=== PATIENT | female | born 1995 | race Caucasian/White ===

== ENCOUNTER → 2022-03-27 | Outpatient (CLI) | payer MEDICAID ==
--- NOTE | 2022-03-27 12:54 | Diagnostic Imaging Report ---
INDICATION: Late entry into care. TECHNIQUE: Multiple real-time grayscale images were obtained over the gravid uterus. COMPARISON: None. FINDINGS: There is a single live intrauterine gestation. The cervix is not well seen due to shadowing from the head. The placenta is posterior and to the left without evidence of previa. heart rate measures 130 BPM. The amniotic fluid index measures 13.3 cm. Presentation is cephalic. The biophysical profile score is 8/8. Biometrical measurements are as follows: Biparietal 9.20 cm, age 37 weeks 3 days. Head circumference 33.41 cm, age 38 weeks 2 days. Abdominal circumference 31.77 cm, age 35 weeks 5 days. Femur length 7.65 cm, age 39 weeks 1 days. Sonographic estimate age: 37 weeks 5 days. Sonographic estimated date of delivery: 04/12/2022. Estimated Weight: 3103 gm (+/- 453 gm). LMP percentile: 28%. heart rate: 130 beats per minute. number: 1 of 1. IMPRESSION: 1. Single live intrauterine gestation measuring at 37 weeks and 5 days. heart rate and amniotic fluid are normal. 2. Biophysical profile score of 8/8. Dictated by: Dictated on workstation # [id number]
== END ==
LOC: RAD 11:30
PROVIDERS: ATTEND Nurse Practitioner Women's Health
DX: O09.33 Supervision of pregnancy with insufficient antenatal care, third trimester (principal); Z3A.37 37 weeks gestation of pregnancy
CPT/HCPCS: 76805; 76819

== ENCOUNTER 2022-04-01 05:34 | Outpatient (CLI) | payer MEDICAID ==
[~2022-04-01] VITALS: Ht 162.5 cm; Wt 111.3 kg
[2022-04-01] MEDS ORDERED: PNV1TABL9 PO ×2 (12:28)
[2022-04-02] MEDS ORDERED: DOCU100C37 PO ×2 (07:34)
[2022-04-02] MEDS ORDERED: ACHD5005 PO ×2 (07:34)
[2022-04-02] MEDS ORDERED: IBUP-844 PO ×2 (07:34)
== END 2022-04-01 14:16 ==
LOC: PREOP 05:34
PROVIDERS: ATTEND Obstetrics & Gynecology
DX: Z01.818 Encounter for other preprocedural examination (principal)

== ENCOUNTER 2022-04-02 05:35 | Inpatient (IN) | payer MEDICAID ==
[2022-04-02] VITALS (13 sets, daily range): BP systolic 88–129; BP diastolic 45–82
[~2022-04-02] VITALS: Ht 167.7 cm; Wt 111.9 kg
[~2022-04-02 05:35] MED LIST: PNV1TABL9 PO
[2022-04-02] MEDS ORDERED: METOCLOPRAMIDE INJ 10 MG/2 ML (REGLAN) IV ONE (05:45)
[2022-04-02] MEDS ORDERED: CITRIC ACID/SOB CIT (BICITRA) 30 ML UDC PO ONE (05:45)
[2022-04-02] MEDS ORDERED: CATHETER FLUSH 10 ML SYR IV PRN (05:45)
[2022-04-02] MEDS ORDERED: ceFAZolin INJECTION 2,000 MG in NS (IVPB) 50 ML IV ONE (05:45)
[2022-04-02] MEDS ORDERED: LACTATED RINGERS 1,000 ML IV PRN (05:45)
[2022-04-02] MEDS ORDERED: metroNIDAZOLE 500MG/100ML IVPB 100 ML IV ONE (05:45)
[2022-04-02] MEDS ORDERED: FAMOTIDINE 20MG/2ML IV (PEPCID) IV ONE (06:15)
[2022-04-02 07:12] LABS: BILIRUBIN,URINE NEGATIVE (NEGATIVE); CLARITY,URINE CLEAR; COLOR,URINE YELLOW; GLUCOSE, URINE (UA) NEGATIVE (NEGATIVE); KETONES,URINE NEGATIVE (NEGATIVE); LEUKOCYTE ESTERASE ,URINE TRACE (NEGATIVE); NITRITE,URINE NEGATIVE (NEGATIVE); PROTEIN,URINE NEGATIVE (NEGATIVE)
[2022-04-02] MEDS ORDERED: fentaNYL INJ 100 MCG/2 ML AMP ONE (07:12)
[2022-04-02] MEDS ORDERED: FLU QUADRIvalent (6 months+) 60 mcg/0.5 ml 2022-23 (Fluzone) IM ONE (07:15)
[2022-04-02] MEDS ORDERED: ONDANSETRON 4 MG/2 ML (SDV) Z0FRAN ONE (07:25)
[2022-04-02] MEDS ORDERED: KETOROLAC 30 MG/ML VIAL ONE (07:25)
[2022-04-02] MEDS ORDERED: BUPIVACAINE 0.25% 30 ML (SENSORCAINE) VIAL ONE (07:25)
--- NOTE | 2022-04-02 07:28 | History & Physical-OB ---
OB - Chief Complaint & HPI Date/Time Date of Admission: Date of Admission: Apr 02, 2022 at 05:35 Date seen by a Provider: Apr 02, 2022 Time Seen by a Provider: 07:25 Chief Complaint/History OB-Reason for Admission/Chief: Section Hx : 3 Hx Para: 3 Expected Date of Delivery: Apr 02, 2022 Gestational Age in Weeks: 40 Gestational Age in Days: 0 Indication for : desires repeat Admission Nurse Assessment Rev: Yes History of Labs See PNL from [facility] Allergies and Home Medications Allergies Coded Allergies: No Known Drug Allergies (Unverified , 04/01/22) Patient Home Medication List Home Medication List Reviewed: Yes Pnv Cmb#21/Iron/Folic Acid ( Complete Caplet) 14 Mg Iron-400 Mcg Tablet, 1 EACH PO DAILY, (Reported) Entered as Reported by: MARISABEL JARQUIN on 04/01/22 1228 OB - History Hx of Present Care: Yes Ultrasounds: Other (late 2nd trimester US. Indeterminate conflicting dates. LMP late Feb/Early march ALEXIS, US 04/02-04/19) Abnormal Ultrasound Findings: Suspected IUGR Obstetrical Complications: None Medical Complications: None Patient Past Medical History n/a Immunizations Influenza Vaccine Up-to-Date: No; Not Current OB - Admission Exam Physical Exam Vitals: Vital Signs 04/02/22 05:54 Temp 36.6 Pulse 88 Resp 18 B/P (MAP) 129/82 (98) Pulse Ox 98 O2 Delivery Room Air HEENT: NCAT Heart: Rhythm Normal Lungs: Clear Abdomen: Gravid Extremities: Normal Reflexes: Normal Heart Rate: 130's Accelerations: Accelerations Present Decelerations: No Decelerations Short Term Variability: Present Literary Agent Variability: Average (6-25) Contractions on Admission: >10 Minutes Apart Intensity: Mild Labs Laboratory Tests Test 04/02/22 07:00 Range/Units OB - Assessment/Plan/Diagnosis Assessment Assessment: section Admission Dx 26 yo @ 40.0 weeks Previous x 2 Probable SGA vs. IUGR due to growth noted on US Tobacco user in . Admission Status: Inpatient Order (span 2 midnights) Reason for Inpatient Admission: Repeat Plan Plan: Section DUANE DENIS DO Apr 02, 2022 07:28
[2022-04-02] MEDS ORDERED: MEASLES,MUMPS,RUBELLA 1 EA INJ SC SCH (07:30)
[2022-04-02] MEDS ORDERED: ONDANSETRON 4 MG/2 ML (SDV) Z0FRAN IVP PRN (07:30)
[2022-04-02] MEDS ORDERED: NALOXONE 0.4 MG/ML 1 ML (NARCAN) VIAL IV PRN (07:30)
[2022-04-02] MEDS ORDERED: TETANUS,DIPTH,PERTUSS P/F (BOOSTRIX) 0.5 ML VIAL IM SCH (07:30)
--- NOTE | 2022-04-02 07:31 | Discharge Inst-Women's Service ---
Discharge Inst-Women's Serv Depart Medication/Instructions New, Converted or Re-Newed RX: Transmitted to Pharmacy Final Diagnosis POD 2 RLTCS Problems Reviewed?: Yes Consults/Follow Up Additional Follow Up: Yes Orders/Referrals Dr. Girard/Abbi in 7-10 days and [facility] in 6 weeks Activity Activity: Activity as Tolerated Driving Instructions: No Driving for 1 Week NO SMOKING: NO SMOKING Nothing Inside Vagina: No Douching, No [place], No Tampons Diet Discharge Diet: No Restrictions Symptoms to Report to : Bleeding Excessive, Pain Increased, Fever Over 101 Degrees F, Vaginal Bleeding Increase, Questions/Concerns For Any Problems or Questions: Contact Your Physician Skin/Wound Care Infection Signs and Symptoms: Increased Redness, Foul Odor of Wound, Increased Drainage, Skin Itchy or Has a Rash, Increased Swelling, Temperature Above 101 F Operative Area Clean and Dry: Keep Incision Clean/Dry Stitches/[place]/Dermabond: Dermabond, Care of Stitches Bathing Instructions: DUANE Cornelius DO Apr 02, 2022 07:31
[2022-04-02] MEDS ORDERED: IBUP-844 PO ×2 (07:34)
[2022-04-02] MEDS ORDERED: DOCU100C37 PO ×2 (07:34)
[2022-04-02] MEDS ORDERED: ACHD5005 PO ×2 (07:34)
[2022-04-02 07:54] LABS: AMPHETAMINE SCREEN, URINE NEGATIVE (NEGATIVE); BACTERIA,URINE TRACE /HPF; BARBITURATE SCREEN URINE NEGATIVE (NEGATIVE); BENZODIAZEPINES SCREEN URINE NEGATIVE (NEGATIVE); CANNABINOID SCREEN, URINE NEGATIVE (NEGATIVE); COCAINE SCREEN URINE NEGATIVE (NEGATIVE); METHADONE STAT NEGATIVE (NEGATIVE); OPIATE SCREEN URINE NEGATIVE (NEGATIVE); OXYCODONE STAT NEGATIVE (NEGATIVE); PROPOXYPHENE STAT NEGATIVE (NEGATIVE); TRICYCLIC ANTIDEPRESSANTS SCRE NEGATIVE (NEGATIVE)
[2022-04-02 08:37] LABS: BASOPHILS % (AUTO) 0 % (0-10); EOSINOPHILS # (AUTO) 0.2 10^3/uL (0.0-0.3); EOSINOPHILS % (AUTO) 2 % (0-10); HEMATOCRIT 29 % (35-52); HEMOGLOBIN 8.9 g/dL (11.5-16.0); LYMPHOCYTES # (AUTO) 1.7 10^3/uL (1.0-4.0); LYMPHOCYTES % (AUTO) 17 % (12-44); MEAN CORPUSCULAR HEMOGLOBIN 23 pg (25-34); MEAN CORPUSCULAR HGB CONC 31 g/dL (32-36); MEAN CORPUSCULAR VOLUME 76 fL (80-99); MEAN PLATELET VOLUME 9.3 fL (9.0-12.2); MONOCYTES # (AUTO) 0.5 10^3/uL (0.0-1.0); MONOCYTES % (AUTO) 5 % (0-12); NEUTROPHILS # (AUTO) 7.5 10^3/uL (1.8-7.8); NEUTROPHILS % (AUTO) 76 % (42-75); PLATELET COUNT 219 10^3/uL (130-400); WHITE BLOOD COUNT 9.9 10^3/uL (4.3-11.0)
[2022-04-02] MEDS: DOCUSATE SODIUM 100 MG (COLACE) CAP PO SCH ×2 (09:00→20:49)
[2022-04-02] MEDS: LACTATED RINGERS 1,000 ML IV PRN ×2 (11:31→12:22)
[2022-04-02] MEDS: OXYTOCIN PRE-MIX DRIP 500 ML IV SCH ×2 (14:01→18:02)
[2022-04-02] MEDS: CATHETER FLUSH 10 ML SYR IV SCH (14:21)
[2022-04-02] MEDS ORDERED: OXYTOCIN PRE-MIX DRIP 500 ML IV ONE (18:00)
[2022-04-02] MEDS: HYDROcodone/APAP 5 MG/325 MG (LORTAB) TAB PO PRN (18:34)
[2022-04-02] MEDS: KETOROLAC 30 MG/ML VIAL IV SCH (20:50)
--- NOTE | 2022-04-02 22:59 | OPERATIVE REPORT ---
DATE OF SERVICE: 04/02/2022 PREOPERATIVE DIAGNOSES: 1. A 26-year-old G3, P2 at 40 weeks gestation. 2. Previous section x2. POSTOPERATIVE DIAGNOSES: 1. A 26-year-old G3, P2 at 40 weeks gestation. 2. Previous section x2. PROCEDURE: Repeat low transverse section. SURGEON: Mike Denis DO WEIGHT LOSS CENTRE MANAGER: Abbi Mcgee DNP, was necessary for manipulation and retraction throughout the procedure. ANESTHESIA: Spinal. ESTIMATED BLOOD LOSS: 400 mL URINE OUTPUT: 50 mL clear at the end of the procedure. FLUIDS: 1800 mL lactated Ringer's solution. FINDINGS: Live female infant weighing 7 pounds 4 ounces, Apgars of 8 and 9. Grossly normal appearing uterus, bilateral fallopian tubes, and ovaries. SPECIMENS SENT: Placenta. INDICATIONS FOR PROCEDURE: This 26-year-old female patient who had sought consultation in my office for repeat . She had 2 prior cesareans in the past. She was scheduled for the best estimated delivery date given that her due dates had ranged anywhere from early March to early April by a 20-week ultrasound. This made her approximately 40 weeks today. Risks of the procedure were discussed with the patient in detail. After all of her questions were answered and consent was obtained, the patient was taken to the operating room. DESCRIPTION OF PROCEDURE: Once in the operating room, spinal analgesia was found to be adequate, was placed in supine position with a leftward tilt, prepped and draped in a sterile fashion. A timeout was performed. Anesthesia was tested. I then made a Pfannenstiel skin incision through the previous existing scar using a knife and carried down to the fascia using Bovie cautery. The fascial incision extended laterally using Bovie cautery. Superior aspect of fascial incision was then grasped with Roc clamps, tented upward and dissected off the rectus muscles. The inferior aspect of the fascial incision was then grasped with Roc clamps, tented up and dissected off the rectus muscles. The rectus muscles were dissected in the midline, which exposed the peritoneum, which were entered bluntly and extended using blunt traction. José Luis ring retractor was placed within the peritoneal incision was done first. Excellent lateral sidewall retraction identified. The lower uterine segment was found to be thinned out and make a low transverse incision to the vesicouterine peritoneum and bluntly dissected off the lower uterine segment, creating a bladder flap. We then proceeded with my myotomy until membranes were visualized, at which point I extended the uterine incision laterally and superiorly using bandage scissors. The infant was found in the vertex presentation. With gentle fundal pressure, the infant's head was elevated up to the incision where it was delivered through the incision. Nuchal cord was reduced x3. Anterior and posterior shoulders were delivered and the was brought to the operative field. Cords were clamped and cut. was handed off to waiting nurses in attendance. Cord blood was collected. Three-vessel cord with intact placenta delivered spontaneously thereafter. IV Pitocin is initiated to facilitate uterine contraction. Uterine fundus confirmed by bimanual massage. The uterus was then exteriorized and cleared of all endometrial clots and debris. I then proceeded with closing the uterine incision using 0 Vicryl suture in a running locked fashion. Second layer of imbricating 0 Monocryl was placed. Excellent hemostasis was noted. After doing this, I then placed the uterus back in the pelvis and copiously irrigated the pelvis with normal saline. Once again, there was noted to be no remaining dissection planes. I placed Interceed antiadhesive over a low transverse incision. I removed the José Luis ring retractor and proceeded with closing the peritoneum and rectus muscles in one layer using 3-0 Vicryl suture in a running fashion. The fascia was reapproximated using 0 Vicryl suture in a running fashion. The skin was then reapproximated using 4-0 Monocryl in a running subcuticular. Dermabond was applied to incision and sterile dressing with adhesive white tape. The patient tolerated the procedure well and was taken to recovery are in stable condition. Lap and sponge counts were correct at the end of the procedure. Instrument counts were correct as well. Two grams of Ancef were given preoperatively for infection prophylaxis. Job ID: [id number] DocumentID: [id number] Dictated Date: 04/02/2022 12:47:37 Oil Paint Shader Date: 04/02/2022 22:56:00 Dictated By: MIKE DENIS DO
[2022-04-03 00:10] VITALS: BP 119/68
[2022-04-03 03:50] VITALS: BP 122/75
[2022-04-03] MEDS: KETOROLAC 30 MG/ML VIAL IV SCH (03:50)
[2022-04-03] MEDS: CATHETER FLUSH 10 ML SYR IV SCH (03:50)
[2022-04-03] MEDS: HYDROcodone/APAP 5 MG/325 MG (LORTAB) TAB PO PRN (03:52)
[2022-04-03 06:01] LABS: BASOPHILS % (AUTO) 0 % (0-10); EOSINOPHILS # (AUTO) 0.2 10^3/uL (0.0-0.3); EOSINOPHILS % (AUTO) 2 % (0-10); HEMATOCRIT 28 % (35-52); HEMOGLOBIN 8.9 g/dL (11.5-16.0); LYMPHOCYTES # (AUTO) 1.6 10^3/uL (1.0-4.0); LYMPHOCYTES % (AUTO) 17 % (12-44); MEAN CORPUSCULAR HEMOGLOBIN 24 pg (25-34); MEAN CORPUSCULAR HGB CONC 32 g/dL (32-36); MEAN CORPUSCULAR VOLUME 75 fL (80-99); MEAN PLATELET VOLUME 9.3 fL (9.0-12.2); MONOCYTES # (AUTO) 0.7 10^3/uL (0.0-1.0); MONOCYTES % (AUTO) 7 % (0-12); NEUTROPHILS # (AUTO) 7.1 10^3/uL (1.8-7.8); NEUTROPHILS % (AUTO) 74 % (42-75); PLATELET COUNT 240 10^3/uL (130-400); WHITE BLOOD COUNT 9.7 10^3/uL (4.3-11.0)
[2022-04-03] MEDS ORDERED: IBUPROFEN 600 MG (MOTRIN) TAB PO SCH (07:30)
[2022-04-03 08:38] VITALS: BP 100/61
[2022-04-03] MEDS: DOCUSATE SODIUM 100 MG (COLACE) CAP PO SCH (08:42)
--- NOTE | 2022-04-03 09:02 | Anesthesia-Regional Post-Op ---
Regional Patient Condition Mental Status: Alert, Oriented x3 Circulation: Same as Pre-Op Headache: Absent Sensation: Full Recovery Motor Block: Absent Post Op Complications Complications None Follow Up Care/Instructions Patient Instructions None needed. Anesthesia/Patient Condition Patient is doing well, no complaints, stable vital signs, no apparent adverse anesthesia problems. No complications reported per nursing. VIKY CHAVEZ CRNA Apr 03, 2022 09:02
--- NOTE | 2022-04-03 10:24 | Postpartum Progress Note ---
Note Note Day # 1 Subjective: Patient is without complaints. Ambulating, voiding. Tolerating a regular diet without nausea or vomiting. Normal lochia. Pain is well controlled with oral pain medications. Physical Exam: General - Alert and oriented, no apparent distress Abdomen - Soft, appropriately tender to palpation, non-distended, fundus firm at umbilicus; incision c/d/i Extremities - no edema, negative Carlos's bilaterally Assessment: Post- day # 1, status post RLTCS Recovering well, hemodynamically stable Acute blood loss anemia Plan: Routine care. Encourage breast feeding. Encourage ambulation. Ferrous sulfate supplementation. Plan for discharge today after noon d/t transfer of infant for surgery Vitals - Labs Vital Signs - I&O Vital Signs Date Time Temp Pulse Resp B/P (MAP) Pulse Ox O2 Delivery O2 Flow Rate FiO2 04/03/22 03:50 36.4 80 18 122/75 (91) 97 Room Air 04/03/22 00:10 36.6 88 18 119/68 (85) 97 Room Air 04/02/22 20:50 36.6 89 18 124/69 (87) 97 Room Air 04/02/22 18:35 36.6 78 18 120/72 (88) 99 Room Air 04/02/22 15:59 Room Air 04/02/22 14:30 36.6 72 16 110/64 (79) 98 Room Air 04/02/22 14:00 36.5 68 18 118/59 (78) 99 Room Air 04/02/22 13:50 Room Air 04/02/22 13:45 36.3 16 109/69 (82) 98 Room Air 04/02/22 13:40 20 88/48 (61) 99 Room Air 04/02/22 13:30 17 92/57 (69) 98 Room Air 04/02/22 13:30 Room Air 04/02/22 13:20 16 119/71 (87) 98 Room Air 04/02/22 13:15 Room Air 04/02/22 13:10 16 108/52 (70) 99 Room Air 04/02/22 13:00 Room Air 04/02/22 13:00 20 94/51 (65) 99 Room Air 04/02/22 12:52 Room Air 04/02/22 12:52 36.8 16 88/45 (59) 99 Room Air I & O 04/03/22 07:00 Intake Total 3000 ml Output Total 1020 ml Balance 1980 ml Labs Laboratory Tests 04/03/22 05:40: White Blood Count 9.7, Red Blood Count 3.74L, Hemoglobin 8.9L, Hematocrit 28L, Mean Corpuscular Volume 75L, Mean Corpuscular Hemoglobin 24L, Mean Corpuscular Hemoglobin Concent 32, Red Cell Distribution Width 15.5H, Platelet Count 240, Mean Platelet Volume 9.3, Immature Granulocyte % (Auto) 1, Neutrophils (%) (Auto) 74, Lymphocytes (%) (Auto) 17, Monocytes (%) (Auto) 7, Eosinophils (%) (Auto) 2, Basophils (%) (Auto) 0, Neutrophils # (Auto) 7.1, Lymphocytes # (Auto) 1.6, Monocytes # (Auto) 0.7, Eosinophils # (Auto) 0.2, Basophils # (Auto) 0.0, Immature Granulocyte # (Auto) 0.1 Microbiology 04/02/22 MRSA Screen - Final, Complete MRSA not isolated DERIK WARD APRN Apr 03, 2022 10:24
== END 2022-04-03 12:10 | disposition home or self-care (01) | DRG 787 ==
LOC: LDRP 05:35
PROVIDERS: ADMIT Obstetrics & Gynecology; ATTEND Obstetrics & Gynecology
PROC: 10D00Z1 Extraction of Products of Conception, Low, Open Approach (ICD-10-PCS; principal; 2022-04-02 11:56)
DX: O48.0 Post-term pregnancy (principal); D62 Acute posthemorrhagic anemia; O34.211 Maternal care for low transverse scar from previous cesarean delivery; O99.334 Smoking (tobacco) complicating childbirth; Z37.0 Single live birth; O69.81X0 Labor and delivery complicated by cord around neck, without compression, not applicable or unspecified; O90.81 Anemia of the puerperium; Z3A.40 40 weeks gestation of pregnancy; F17.210 Nicotine dependence, cigarettes, uncomplicated
CPT/HCPCS: 36410; 36415; 76937; 80306; 81000; 85025; 86850; 86900; 86901; 87081; 94664

== ENCOUNTER 2022-06-03 13:59 | Emergency (ER) | payer MEDICAID ==
[~2022-06-03] VITALS: Ht 163 cm; Wt 97.0 kg
[~2022-06-03 13:59] MED LIST changes: +ACHD5005 PO; +DOCU100C37 PO; +IBUP-844 PO
[2022-06-03 14:04] VITALS: BP 137/79
--- NOTE | 2022-06-03 14:21 | ED Upper Extremity ---
General Chief Complaint: Upper Extremity Stated Complaint: RT HAND SWOLLEN Nursing Triage Note: PT AMB TO ED BY POV WITH C/O R HAND SWELLING SINCE YESTERDAY. PT DENIES INJURY. RED RASH NOTED TO BILAT HANDS, PT REPORTS THAT IS NORMAL FOR HER. PT HAS NOT TRIED TAKING ANY PAIN MEDS OR ICING THE AREA. History of Present Illness Date Seen by Provider: Jun 03, 2022 Time Seen by Provider: 14:09 Initial Comments 26-year-old female presents with swelling to the back of her right hand. She reports that she noticed that yesterday. Thinks that maybe a skin little bit bigger. She does have a rash on her bilateral hands but reports that that is normal for her. She does not recall any injury. She has not tried thing for it. She has full range of motion. Mild erythema and warmth. Allergies and Home Medications Allergies Coded Allergies: morphine (Verified Adverse Reaction, Mild, Itching, 04/02/22) Patient Home Medication List Home Medication List Reviewed: Yes Docusate Sodium (Docusate Sodium) 100 Mg Capsule, 100 MG PO BID Prescribed by: DUANE DENIS on 04/02/22 0734 Hydrocodone Bit/Acetaminophen (HYDROcodone/APAP 5 MG/325 MG TAB) 1 Tab Tab, 1-2 EA PO Q6HR PRN for PAIN-MODERATE (5-7) Prescribed by: DUANE DENIS on 04/02/22 0735 Ibuprofen (Ibu) 600 Mg Tablet, 600 MG PO Q6H Prescribed by: DUANE DENIS on 04/02/22 0734 Pnv Cmb#21/Iron/Folic Acid ( Complete Caplet) 14 Mg Iron-400 Mcg Tablet, 1 EACH PO DAILY, (Reported) Entered as Reported by: MARISABEL JARQUIN on 04/01/22 1228 Review of Systems Constitutional: No chills, No fever EENTM: no symptoms reported Respiratory: no symptoms reported Cardiovascular: no symptoms reported Gastrointestinal: no symptoms reported Genitourinary: no symptoms reported Musculoskeletal: see HPI Skin: see HPI Past Naidqhe-Vlxtru-Sialnr Hx Patient Social History Tobacco Use?: Yes Tobacco type used: Cigarettes Smoking Status: Current Everyday Smoker Use of E-Cig and/or Vaping dev: No Substance use?: No Alcohol Use?: No Pt feels they are or have been: No Immunizations Up To Date Influenza Vaccine Up-to-Date: No; Not Current Seasonal Allergies Seasonal Allergies: Yes Past Medical History Surgery/Hospitalization HX: C SECT Surgeries: Yes Section Respiratory: No Currently Using CPAP: No Currently Using BIPAP: No Cardiac: No Neurological: Yes Concussion Genitourinary: No Gastrointestinal: Yes (DURING PG) Gastroesophageal Reflux Musculoskeletal: No Endocrine: No HEENT: No Cancer: No Psychosocial: No Integumentary: No Blood Disorders: No Physical Exam Vital Signs Vital Signs - First Documented 06/03/22 14:04 Pulse 92 Resp 18 B/P (MAP) 137/79 (98) Pulse Ox 98 O2 Delivery Room Air Capillary Refill : Less Than 3 Seconds Height, Weight, BMI Height: '" Weight: lbs. oz. kg; 36.00 BMI Method: General Appearance: WD/WN, no apparent distress Neck: full range of motion, supple Cardiovascular: normal peripheral pulses, regular rate, rhythm Respiratory: lungs clear, normal breath sounds Gastrointestinal: non tender, soft Hand: Right, soft tissue tenderness, swelling Neurologic/Tendon: normal sensation Neurologic/Psychiatric: alert, normal mood/affect, oriented x 3 Skin: rash (bilateral hands, non specific ) Progress/Results/Core Measures Results/Orders My Orders Orders - ROLANDOCINDY L DO Hand, Right, 3 Views (06/03/22 14:15) Vital Signs/I&O 06/03/22 14:04 Pulse 92 Resp 18 B/P (MAP) 137/79 (98) Pulse Ox 98 O2 Delivery Room Air Blood Pressure Mean: 98 Progress Progress Note : Progress Note Patient with a negative x-ray for any acute fractures or foreign bodies. She does have a superficial rash on her bilateral hands which I suspect likely became infected. We will treat her with Keflex. Also recommend she try some topical Benadryl and hydrocortisone cream. She should follow-up with her primary care provider if her symptoms or not proving over the next couple days to a week. She was stable and discharged home Diagnostic Imaging Diagonstic Imaging: Xray Plain Films/CT/US/NM/MRI: other Comments ADMIT DATE: 06/03/22/ER Signed Date of Exam:06/03/22 HAND, RIGHT, 3 VIEWS HAND, RIGHT, 3 VIEWS COMPARISON: None available. INDICATION: Hand pain TECHNIQUE: PA, oblique and lateral views of the hand. FINDINGS: No fracture or traumatic malalignment. No radiopaque foreign body. Joint spaces are well-maintained. IMPRESSION: 1. No acute fracture or malalignment. Departure Impression Primary Impression: Cellulitis of hand, right Additional Impression: Rash of both hands Disposition: HOME, SELF-CARE Condition: Stable Departure-Patient Inst. Referrals: NO,LOCAL PHYSICIAN (PCP/Family) Primary Care Physician Patient Instructions: Topical Corticosteroid Medicines, Cellulitis (Skin Infection), Adult ED Add. Discharge Instructions: Topical hydrocortisone cream, use as directed on package. Benadryl cream, use as directed on package All discharge instructions reviewed with patient and/or family. Voiced understanding. Scripts Cephalexin (Cephalexin) 500 Mg Tablet 500 MG PO QID, #20 TAB 0 Refills Prov: CINDY MARSHALL DO 06/03/22 CINDY MARSHALL DO Jun 03, 2022 14:21
--- NOTE | 2022-06-03 14:39 | Diagnostic Imaging Report ---
HAND, RIGHT, 3 VIEWS COMPARISON: None available. INDICATION: Hand pain TECHNIQUE: PA, oblique and lateral views of the hand. FINDINGS: No fracture or traumatic malalignment. No radiopaque foreign body. Joint spaces are well-maintained. IMPRESSION: 1. No acute fracture or malalignment. Dictated by: Dictated on workstation # [id number]
[2022-06-03] MEDS ORDERED: CEPH500T PO (14:49)
== END 2022-06-03 14:55 | disposition home or self-care (01) ==
LOC: EDUNIT# 13:59 → ER 14:01
DX: L03.113 Cellulitis of right upper limb (principal); R21 Rash and other nonspecific skin eruption; F17.210 Nicotine dependence, cigarettes, uncomplicated; Z28.310 Unvaccinated for COVID-19
CPT/HCPCS: 73130